=== PATIENT | male | born 1950 | race Caucasian/White ===

== ENCOUNTER 2016-10-10 09:05 | Inpatient (IN) | payer MEDICARE, OTHER ==
[~2016-10-10] VITALS: Ht 175.3 cm; Wt 93.4 kg
--- NOTE | ~2016-10-10 | CO ---
Unit #: [id number] #: [id number] Patient: BIJAL BALLESTEROS [id number] [facility] [address] [place] [address] [id number] MR#: [id number] NAME: BIJAL BALLESTEROS. ROOM: [facility] Age: 66 Sex: M Admission Date: 10/10/2016 : 1950 Attending Physician: Nathalia Ac M.D. Primary Care Physician: Hunter Doctor Not In System Consultation Date: 10/12/2016 CONSULTATION REPORT ORDERING PROVIDER Dr. Ac. REASON FOR CONSULT To follow up on diabetes. SUBJECTIVE The patient was put on Novolin 70/30 yesterday at 25 units b.i.d. According to nursing, the patient was unhappy with this as he wanted to be on his home dose of 45 units b.i.d.; however, his blood sugars have remained stable, fasting he was 74 and before lunch today he was 73. I discussed with the patient that it would be unsafe at this point to increase his insulin any further, he was in agreement and is okay with current dosing. Dictated by... Markos Duncan/sylvain TD: 10/12/2016 19:16 JOB #: [id number] CONSULTATION REPORT Page 1 of 1 X ZHOU ARTEAGA APRN CONSULTATION REPORT
--- NOTE | ~2016-10-10 | PN ---
Unit #: [id number] #: [id number] Patient: BIJAL LOUIS [id number] [facility] [address] [place] [address] [id number] MR#: [id number] NAME: BIJAL LOUIS. ROOM: 63 Age: 66 Sex: M Admission Date: 10/10/2016 : 1950 Attending Physician: Nathalia Ac M.D. Admitting Physician: Nathalia Ac M.D. Primary Care Physician: Hunter Doctor Not In System [facility] PROGRESS NOTES DATE 10/17/2016 DISCUSSION Mr. Louis is a 66-year-old white male who was seen today and chart was reviewed and case was discussed with the staff. He has been anxious, withdrawn and rather seclusive to himself but reports improvement in his mood and anxiety and depression. He has been taking the medications and tolerating them fairly well with no reported side effects. MENTAL STATUS EXAMINATION An elderly white male who was casually dressed with fair personal hygiene and appears to be in no acute distress or discomfort. He was alert on interaction with intact orientation. He was anxious with congruent affect. He denies any suicidal or homicidal ideations. His insight and judgement remains slightly impaired. TREATMENT PLAN 1. Will continue on his current treatment protocol. Will monitor his response and make further adjustments as needed. 2. Will continue to follow up. Dictated by... Nathlaia Ac M.D. IAA/lanette TD: 10/17/2016 16:10 JOB #: [id number] Unit #: [id number] #: [id number] Patient: BIJAL LOUIS [facility] PROGRESS NOTES Page 1 of 1 X Nathalia Ac MD PROGRESS NOTE
--- NOTE | ~2016-10-10 | PN ---
Unit #: [id number] #: [id number] Patient: BIJAL LOUIS [id number] [facility] [address] [place] [address] [id number] I MR#: [id number] NAME: BIJAL LOUIS. ROOM: [facility] Age: 66 Sex: M Admission Date: 10/10/2016 : 1950 Attending Physician: Nathalia Ac M.D. Admitting Physician: Nathalia Ac M.D. Primary Care Physician: Hunter Doctor Not In System [facility] PROGRESS NOTES DATE OF SERVICE 10/12/2016 DISCUSSION Mr. Louis is a 66-year-old white male who was seen today. Chart was reviewed and case was discussed with the staff. He has been anxious, withdrawn, and rather seclusive to himself. Meanwhile, he has been cooperative with the treatment recommendations and has been taking the medications and tolerating them fairly well with no reported side effects. MENTAL STATUS EXAMINATION An elderly white male who is casually dressed with fair personal hygiene, appears to be in no acute distress or discomfort. He was awake and alert with impaired attention and concentration. His mood is anxious with congruent affect. Speech is slow and tangential. His thought processes were disorganized with some looseness of associations and flight of ideas. His insight and judgment remain significantly impaired. TREATMENT PLAN 1. We will continue him on his current medications and treatment protocol. We will monitor his response to the medications and make further adjustments as needed. 2. We will continue to follow up. Dictated by... Johnny Mcconnell/bzg TD: 10/13/2016 11:42 JOB #: [id number] Unit #: [id number] #: [id number] Patient: BIJAL LOUIS [facility] PROGRESS NOTES Page 1 of 1 X Nathalia Ac MD PROGRESS NOTE
--- NOTE | ~2016-10-10 | PN ---
Unit #: [id number] #: [id number] Patient: BIJAL LOUIS [id number] [facility] [address] [place] [address] [id number] I MR#: [id number] NAME: BIJAL LOUIS. ROOM: [facility] Age: 66 Sex: M Admission Date: 10/10/2016 : 1950 Attending Physician: Nathalia Ac M.D. Admitting Physician: Nathalia Ac M.D. Primary Care Physician: Generic Doctor Not In System [facility] PROGRESS NOTES DATE 10/15/2016 DISCUSSION Mr. Louis is a 66-year-old white male with mood disorder who was seen today and chart was reviewed and case was discussed with the staff. He was laying in his bed and reports not feeling good and being in pain and waiting for his morning pain medication and does appear to be exhibiting some med seeking behavior as his daily schedule revolves around when he can get his pain medicine and when can he get his nerve pill. Meanwhile, he has not shown any agitation or aggression. MENTAL STATUS EXAMINATION An elderly white male who was casually dressed with fair personal hygiene and appears to be in slight distress and discomfort. He was awake and alert with impaired attention and concentration. His mood was anxious with congruent affect. His speech is slow and restricted in content. His thought processes were disorganized with some looseness of associations. His insight and judgement remains significantly impaired. TREATMENT PLAN 1. Will continue on current medications and treatment protocol. Will monitor response and make further adjustments as needed. 2. Will continue to follow up. Dictated by... Johnny Mcconnell/lanette TD: 10/15/2016 20:40 JOB #: [id number] Unit #: [id number] #: [id number] Patient: BIJAL LOUIS [facility] PROGRESS NOTES Page 1 of 1 X Nathalia Ac MD PROGRESS NOTE
--- NOTE | ~2016-10-10 | PN ---
Unit #: [id number] #: [id number] Patient: BIJAL LOUIS [id number] [facility] [address] [place] [address] [id number] I MR#: [id number] NAME: BIJAL LOUIS. ROOM: 63 Age: 66 Sex: M Admission Date: 10/10/2016 : 1950 Attending Physician: Nathalia Ac M.D. Admitting Physician: Nathalia Ac M.D. Primary Care Physician: Hunter Doctor Not In System [facility] PROGRESS NOTES DATE October 14, 2016 DISCUSSION Mr. Louis is a 66-year-old white male, who was seen today and chart was reviewed and the case was discussed with the staff. He has been anxious, withdrawn, and rather seclusive to himself. Meanwhile, he has been cooperative with the treatment recommendations and he has been taking the medications and tolerating them fairly well with no reported side effects. MENTAL STATUS EXAMINATION An elderly white male, who was casually dressed with fair personal hygiene and appears to be in no acute distress or discomfort. He was awake and alert on interaction with intact orientation. His mood is anxious with a congruent affect. He denies any suicidal or homicidal ideations. His insight and judgment remain significantly impaired. TREATMENT PLAN We will continue him on his current medications and treatment protocol, and will monitor his response, and make further adjustments as needed. Dictated by... Johnny Mcconnell/celina TD: 10/15/2016 08:57 JOB #: [id number] [facility] PROGRESS NOTES Page 1 of 1 X Nathalia Ac MD PROGRESS NOTE
--- NOTE | ~2016-10-10 | PA ---
Unit #: [id number] #: [id number] Patient: BIJAL LOUIS [id number] [facility] [address] [place] [address] [id number] I MR#: [id number] NAME: BIJAL LOUIS. ROOM: [facility] Age: 66 Sex: M Admission Date: 10/10/2016 : 1950 Date of Assessment: Attending Physician: Nathalia Ac M.D. Admitting Physician: Nathalia Ac M.D. PSYCHIATRIC ASSESSMENT DATE OF SERVICE 10/10/2016. IDENTIFYING DATA Mr. Louis is a 66-year-old , disabled, white male, who is a resident of [place], [place], and was transferred to from [facility] on a voluntary basis. CHIEF COMPLAINT "I should have killed myself to get out of this pain." HISTORY OF PRESENT ILLNESS Mr. Louis is a 66-year-old white male. He came to the emergency room complaining of being in pain and rated his pain 10/10 to the ER nurse and was brought to the hospital by EMS and had ambulated to downstairs and 100 feet with no signs or symptoms of distress to ambulance, but reported 10/10 on his pain and was seen in the ER and stated "I should have killed myself to get out of this pain." At the time of assessment, the patient reports suicidal ideation, but denied any plan and reports history of suicidal ideations in the past by hanging himself. He reports that he does not have a weapon currently, but stated "I can get them." He also stated "I should kill myself to get out of this pain." He continued to endorse suicidal ideation and wanting to be on his pain medication stating that he has a long history of pain issues and he has been decompensating and also reports that he has been living with his [id number] and multiple family members over the past 8 months, but was seen to be somewhat agitated, irritable, and unable to contract for safety and as such, a recommendation for inpatient level of care for safety and stabilization was made and the patient was transferred to us. SUBSTANCE ABUSE HISTORY The patient denies any alcohol or drug abuse. PAST PSYCHIATRIC HISTORY The patient has had a history of inpatient and outpatient psychiatric treatment and has been diagnosed and treated for mood disorder. Review of the medical records indicate that he is currently not active in any treatment program, is not seeing a psychiatrist, and is not taking any psychotropic medications. PAST MEDICAL HISTORY The patient's medical history is significant for diabetes mellitus and chronic pain. Unit #: [id number] #: [id number] Patient: BIJAL LOUIS ALLERGIES Toradol, Stadol, Compazine, Seroquel, and Haldol. PERSONAL AND SOCIAL HISTORY A 66-year-old white male, who reports that he is single, unemployed, disabled, and lives with his sister and has poor social support system. MENTAL STATUS EXAMINATION An elderly white male, who was casually dressed with fair personal hygiene, appears to be in no acute distress or discomfort. He was awake and alert on interaction with intact orientation to time, place, and person. His mood was anxious and depressed with a congruent affect. His speech was slow and restricted in content. His thought processes were disorganized with some looseness of associations and flight of ideas. His insight and judgment remain significantly impaired. DIAGNOSTIC IMPRESSION Psychiatric: Major depressive disorder, recurrent, moderate, without psychotic features. Medical: Chronic pain and diabetes mellitus. Stressors: Moderate psychosocial stressors. TREATMENT PLAN 1. The patient has presented with a history of mood disorder and has been decompensating and will need inpatient hospitalization for safety and stabilization. We will start him back on his home medications. We will adjust the medications and monitor response. 2. Supportive therapy was provided to the patient. 3. Safe, structured, and nourishing environment will be provided. STRENGTHS 1. Communicative. 2. Cooperative. PROBLEMS 1. Chronic dysphoric symptoms. 2. Poor social support system. DISCHARGE CRITERIA This will be contingent upon the patient's ability to show resolution of his depression and anxiety and his ability to stay safe to himself, particularly after discharge from the hospital. Dictated by... Johnny Mcconnell/sylvain TD: 10/11/2016 15:38 JOB #: [id number] Unit #: [id number] #: [id number] Patient: BIJAL LOUIS PSYCHIATRIC ASSESSMENT Page 1 of 1 X Nathalia Ac MD PSYCHIATRIC ASSESSMENT
--- NOTE | ~2016-10-10 | PN ---
Unit #: [id number] #: [id number] Patient: BIJAL BALLESTEROS [id number] [facility] [address] [place] [address] [id number] I MR#: [id number] NAME: BIJAL BALLESTEROS. ROOM: [facility] Age: 66 Sex: M Admission Date: 10/10/2016 : 1950 Attending Physician: Nathalia Ac M.D. Admitting Physician: Nathalia Ac M.D. Primary Care Physician: Generic Doctor Not In System [facility] PROGRESS NOTES DATE 10/16/2016 DISCUSSION has been anxious, withdrawn and rather seclusive to himself but reports doing fairly well and has been calm and cooperative and appears to be doing better on his medications. Taking medications regularly and has been tolerating them fairly well with no reported side effects. MENTAL STATUS EXAMINATION An elderly white male who was casually dressed with fair personal hygiene and appears to be in no acute distress or discomfort. He was awake and alert with intact orientation. His mood was anxious with congruent affect. He denies any suicidal or homicidal ideation. His insight and judgement remains slightly impaired. TREATMENT PLAN 1. Will continue him on his medications and treatment protocol. Will monitor his response to medications and make further adjustments as needed. 2. Will continue to follow up. Dictated by... Johnny Mcconnell/lanette TD: 10/16/2016 22:24 JOB #: [id number] [facility] PROGRESS NOTES Page 1 of 1 X Nathalia Ac MD PROGRESS NOTE
--- NOTE | ~2016-10-10 | CO ---
Unit #: [id number] #: [id number] Patient: BIJAL BALLESTEROS [id number] [facility] [address] [place] [address] [id number] MR#: [id number] NAME: BIJAL BALLESTEROS. ROOM: [facility] Age: 66 Sex: M Admission Date: 10/10/2016 : 1950 Attending Physician: Nathalia Ac M.D. Primary Care Physician: Hunter Doctor Not In System Consultation Date: 10/11/2016 CONSULTATION REPORT ORDERING PROVIDER Dr. Ac. REASON FOR CONSULT Diabetic management. SUBJECTIVE The patient reports that he is type 2 diabetic. He is unclear when he was diagnosed. He reports at home he takes metformin 500 mg b.i.d. and Novolin 70/30 45 units b.i.d. His last blood sugar was noted on 10/10/2016, fasting was 198. It is unclear if he had his medication the night before. According to his home medications, he has not filled his insulin since 2015. However, he reports that he has been getting it from a different pharmacy and he felt it very recently. OBJECTIVE We do not have serial blood sugars at this point since the patient was recently admitted in order we have a recent A1c. ASSESSMENT Diabetes. PLAN Plan is to start the patient back on his 70/30, but cut it down to 25 units b.i.d. If blood sugars remain elevated, we will go up on the dose. I will also continue his metformin and initiate sliding scale insulin at meal time if needed. Dictated by... Markos Duncan/armanil TD: 10/12/2016 22:24 JOB #: [id number] Unit #: [id number] #: [id number] Patient: BIJAL BALLESTEROS CONSULTATION REPORT Page 1 of 1 X ZHOU ARTEAGA APRN CONSULTATION REPORT
--- NOTE | ~2016-10-10 | PN ---
Unit #: [id number] #: [id number] Patient: BIJAL LOUIS [id number] [facility] [address] [place] [address] [id number] MR#: [id number] NAME: BIJAL LOUIS. ROOM: [facility] Age: 66 Sex: M Admission Date: 10/10/2016 : 1950 Attending Physician: Nathalia Ac M.D. Admitting Physician: Nathalia Ac M.D. Primary Care Physician: Hunter Doctor Not In System [facility] PROGRESS NOTES DATE 10/11/2016 DISCUSSION Mr. Louis is a 66-year-old, white male with mood disorder who was seen today and chart was reviewed and case was discussed with the staff. He seemed to be restless, anxious, withdrawn and seclusive to himself. He has been wanting his medications (1) initiated. Meanwhile, he has not shown any agitation or aggression. MENTAL STATUS EXAM An elderly white male who was casually dressed with fair personal hygiene, appears to be in no acute distress or discomfort. He was awake and alert with impaired attention and concentration. His mood was anxious with congruent affect. His speech was slow and restricted in content. He denies any suicidal or homicidal ideation. His insight and judgement remains slightly impaired. TREATMENT PLAN 1. We will continue him on his current medications and treatment protocol. We will monitor his response to the medication and make further adjustments as needed. 2. We will continue to follow up. Dictated by... Johnny Mcconnell/jennifer TD: 10/12/2016 03:43 JOB #: [id number] Unit #: [id number] #: [id number] Patient: BIJAL LOUIS [facility] PROGRESS NOTES Page 1 of 1 X Nathalia Ac MD PROGRESS NOTE
--- NOTE | ~2016-10-10 | PN ---
Unit #: [id number] #: [id number] Patient: BIJAL LOUIS [id number] [facility] [address] [place] [address] [id number] MR#: [id number] NAME: BIJAL LOUIS. ROOM: [facility] Age: 66 Sex: M Admission Date: 10/10/2016 : 1950 Attending Physician: Nathalia Ac M.D. Admitting Physician: Nathalia Ac M.D. Primary Care Physician: Hunter Doctor Not In System [facility] PROGRESS NOTES DATE 10/13/2016 DISCUSSION Mr. Louis is a 66-year-old, white male who was seen today and chart was reviewed and case was discussed with the staff. He has been anxious, withdrawn and has been seclusive to himself. Meanwhile, he has been cooperative with the treatment recommendations. He has been taking the medication and tolerating them fairly well with no reported side effects. MENTAL STATUS EXAM An elderly male who was casually dressed with fair personal hygiene, appears to be in no acute distress or discomfort. He was awake and alert on interaction with intact orientation. His mood was anxious and depressed with congruent affect. His speech was slow and restricted in content. He denies any suicidal or homicidal ideation. His insight and judgement remains slightly impaired. TREATMENT PLAN 1. We will continue him on his current medications and treatment protocol. We will monitor his response to the medication and make further adjustments as needed. 2. We will continue to follow up. Dictated by... Johnny Mcconnell/jennifer TD: 10/14/2016 04:55 JOB #: [id number] Unit #: [id number] #: [id number] Patient: BIJAL LOUIS [facility] PROGRESS NOTES Page 1 of 1 X Nathalia Ac MD PROGRESS NOTE
--- NOTE | ~2016-10-10 | DS ---
Unit #: [id number] #: [id number] [facility] [id number] [facility] [place] [address] [id number] I MR#: [id number] NAME: BIJAL BALLESTEROS. ROOM: [facility] Age: 66 Sex: M Admission Date: 10/10/2016 : 1950 Discharge Date: 10/18/2016 Attending Physician: Nathalia Ac M.D. Primary Care Physician: Generic Doctor Not In System DISCHARGE SUMMARY IDENTIFYING DATA Mr. Ballesteros is a 66-year-old , disabled, white male who is a resident of [place], [place] and was transferred to us from [facility]. DISCHARGE DIAGNOSES Psychiatric: Major depressive disorder, recurrent, moderate, without psychotic features; generalized anxiety disorder. Medical: Chronic pain, diabetes mellitus. Stressors: Moderate psychosocial stressors. HISTORY OF PRESENT ILLNESS Please see initial psychiatric evaluation for details. PAST PSYCHIATRIC HISTORY Please see initial psychiatric evaluation for details. PAST MEDICAL HISTORY Please see initial psychiatric evaluation for details. HOSPITAL COURSE The patient was admitted to the adult psychiatric unit at [facility] and was oriented to the hospital environment. Routine p.r.n. medications were initiated, and he was started back on his home medications and was initially seen to be very anxious, agitated, irritable, however, it was also noted that he is quite obsessed about his pain medication and he has no medication and after verification, those medications were continued and Effexor was also given to help him with sleep and Ambien was also given to help him with sleep and Effexor was given to help him with his depressive symptoms and was closely monitored. He was taking the medications regularly and was tolerating them fairly well and was able to show a decent therapeutic response with improvement in depression and anxiety and was denying any suicidal ideations, intent, or plan and as such, it was decided that he will be discharged home and will continue treatment on an outpatient basis. DISCHARGE MEDICATIONS Xanax 0.5 mg b.i.d. for anxiety, Ambien 10 mg at bedtime for sleep, and Effexor XR 75 mg a day for depression, Lortab 10/325 every 8 hours as needed for pain. DISCHARGE CONDITION Stable. Unit #: [id number] #: [id number] Patient: BIJAL BALLESTEROS MORELIA [place]. Dictated by... Johnny Mcconnell/sylvain TD: 10/19/2016 11:31 JOB #: [id number] DISCHARGE SUMMARY Page 1 of 1 X Nathalia Ac MD X DISCHARGE SUMMARY
--- NOTE | ~2016-10-10 | HP ---
Unit #: [id number] #: [id number] Patient: BIJAL BALLESTEROS [id number] [place] [address] [id number] MR#: [id number] NAME: BIJAL BALLESTEROS. ROOM: 63 Age: 66 Sex: M Admission Date: 10/10/2016 : 1950 Attending Physician: Nathalia Ac M.D. Admitting Physician: Nathalia Ac M.D. Primary Care Physician: Generic Doctor Not In System HISTORY AND PHYSICAL HISTORY OF PRESENT ILLNESS Bijal is a 66 year old admitted to [facility] with depression and verbalizing wanting to hurt himself. PAST MEDICAL HISTORY 1. Degenerative disc disease. a. Chronic pain. 2. Diabetes mellitus. 3. High blood pressure. 4. Hyperlipidemia. 5. Obesity. PAST SURGICAL HISTORY 1. Left hand, left knee. 2. Low back. ALLERGIES Seroquel, Haldol, Toradol, Stadol. SOCIAL HISTORY He denies cigarettes, alcohol and illicit drug use. FAMILY HISTORY Medically noncontributory. REVIEW OF SYSTEMS CONSTITUTIONAL: No fever or chills. HEENT: Denies any sore throat, ear pain or runny nose. CARDIOVASCULAR: Denies chest pain, irregular heart rhythm or palpitations. CHEST: Denies shortness of breath or cough. No hemoptysis. GASTROINTESTINAL: Denies nausea, vomiting, diarrhea or chronic constipation. ENDOCRINE: Denies history of increased thirst or urination. No recent significant weight loss or gain. GENITOURINARY: Denies dysuria, frequency, or hematuria. SKIN: Denies any rashes. HEMATOLOGIC: Denies history of increased bleeding or bruising. MUSCULOSKELETAL: He complains of chronic back and knee pain. He denies any recent or remote injuries. NEUROLOGIC: Denies problems with vision or speech. No frequent, severe headaches. No numbness, tingling or weakness in any extremities. Denies loss of bladder or bowel control. Unit #: [id number] #: [id number] Patient: BIJAL BALLESTEROS CURRENT MEDICATIONS 1. Milk of Magnesia p.r.n. 2. Maalox p.r.n. 3. Tylenol p.r.n. PHYSICAL EXAMINATION GENERAL: Alert, obese, no apparent distress. VITAL SIGNS: Blood pressure 124/60, heart rate 62, respirations 16, temperature 98.6. WEIGHT: 206. HEIGHT: 5 feet 9 inches. SKIN: Warm and dry without rash or lesion. HEENT: Normocephalic. TMs not viewed. Oral and nasal passages clear. Conjunctivae clear. PERRLA. EOMs intact. NECK: Supple without lymphadenopathy or thyromegaly. HEART: Regular rate and rhythm without murmur. LUNGS: Clear. ABDOMEN: Soft, nontender. : Not done. EXTREMITIES: No evidence of cyanosis, clubbing or edema. Moves all without focal deficit. NEUROLOGICAL: Grossly within normal limits. Cranial Nerves: II: Visual rollins are intact. III, IV AND : Extraocular movements are intact. Pupils are equal, round and reactive to light. V: Facial sensation is grossly normal. VII: Facial movements and expression are normal. VIII: Auditory acuity grossly intact. IX, X: Uvula is midline. Phonation is normal. XI: Patient shrugs shoulders and turns head normally. XII: Tongue protrudes in the midline. Sensory and Motor Function: Sensory and motor sensation is grossly normal. Motor: moves all extremities well. Coordination: Gait is normal. Deep Tendon Reflexes: Intact. IMPRESSION Psychiatric admission. RECOMMENDATIONS PSYCHIATRIC: Per psychiatrist. MEDICAL: See no contraindication to participate in facility's activities. MEDICAL PROGNOSIS Good. MEDICAL CONDITION Stable. Dictated by... Kamini Booth P.A.-C. for Johnny Osullivan/lanette TD: 10/11/2016 14:27 JOB #: [id number] Unit #: [id number] #: [id number] Patient: BIJAL BALLESTEROS HISTORY AND PHYSICAL Page 1 of 1 X Kamini Booth HISTORY AND PHYSICAL
== END 2016-10-18 11:45 | disposition home or self-care (01) | DRG 885 ==
LOC: P2L 13:56
DX: F33.1 Major depressive disorder, recurrent, moderate (principal); E11.9 Type 2 diabetes mellitus without complications; G89.29 Other chronic pain; Z79.84 Long term (current) use of oral hypoglycemic drugs; F41.1 Generalized anxiety disorder
CPT/HCPCS: 82947; J3486